=== PATIENT | male | born 1995 | race African-American/Black ===

== ENCOUNTER 2018-03-16 14:45 | Emergency (ER) | payer SELFPAY ==
[~2018-03-16] VITALS: Ht 180.3 cm; Wt 124.7 kg
[2018-03-16 15:08] VITALS: BP 132/86
[2018-03-16] MEDS ORDERED: Bacitracin Oint UD TOPIC ONE (15:15)
[2018-03-16] MEDS ORDERED: Ketorolac 30mg Inj IM ONE (15:15)
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
[2018-03-16] MEDS ORDERED: Ketorolac 30mg Inj ONE (15:20)
[2018-03-16] MEDS ORDERED: TYLENOL EXTRA500 MG ORAL (16:36)
[2018-03-16] MEDS ORDERED: PSEUDOEPHEDRINE30 MG PO (16:36)
[2018-03-16] MEDS ORDERED: PROMETHAZI6.25 MG/1 ORAL (16:36)
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
[2018-03-16 16:56] VITALS: BP 132/86
== END 2018-03-16 16:58 | disposition home or self-care (01) ==
LOC: EMR 16:48
DX: R51 Headache (principal); S00.81XA Abrasion of other part of head, initial encounter; V43.62XA Car passenger injured in collision with other type car in traffic accident, initial encounter; Y92.410 Unspecified street and highway as the place of occurrence of the external cause; R09.81 Nasal congestion; J32.2 Chronic ethmoidal sinusitis
CPT/HCPCS: 70450; 96372; 99284; J1885